=== PATIENT | female | born 1995 | race Two or more races ===

== ENCOUNTER 2016-08-06 15:49 | Outpatient (CLI) | payer MEDICAID ==
[2016-08-06 16:35] VITALS: BMI 27.4
[2016-08-06 16:47] LABS: SPECIFIC GRAVITY 1.015 (1.001-1.030); URINE BILIRUBIN NEGATIVE (NEGATIVE); URINE BLOOD NEGATIVE (NEGATIVE); URINE GLUCOSE (UA) NEGATIVE (NEGATIVE); URINE LEUKOCYTE ESTERASE NEGATIVE (NEGATIVE); URINE NITRITE NEGATIVE (NEGATIVE); URINE PROTEIN NEGATIVE (NEGATIVE); URINE UROBILINOGEN NORMAL (0-1 mg/dl)
[2016-08-06 16:51] LABS: URINE APPEARANCE CLEAR; URINE COLOR YELLOW
[2016-08-06] MEDS ORDERED: IV START KIT ONE (16:58)
[2016-08-06] MEDS ORDERED: LACTATED RINGERS 1,000 ML ONE (16:58)
[2016-08-06] MEDS ORDERED: LACTATED RINGERS 1,000 ML IV SCH (17:00)
== END 2016-08-06 18:14 | disposition home or self-care (01) ==
LOC: FBCOUT 15:49 → FBC 15:49 → FBCOUT 18:14
PROVIDERS: ATTEND Family Medicine
DX: O47.9 False labor, unspecified (principal); Z3A.00 Weeks of gestation of pregnancy not specified
CPT/HCPCS: 96360; 96361; 81003; 59025; J7120; G0463

== ENCOUNTER 2016-09-26 01:48 | Inpatient (IN) | payer MEDICAID ==
[2016-09-26 02:34] VITALS: BMI 29.2
[2016-09-26] MEDS ORDERED: OXYTOCIN IN NS 334 ML IV PRN ×2 (04:40→05:26)
[2016-09-26] MEDS ORDERED: PENICILLIN G POTASSIUM 5 MMU in NS 0.9% (MINI-BAG PLUS) 100 ML IV ONE (04:42)
[2016-09-26] MEDS ORDERED: IV START KIT ONE (04:44)
[2016-09-26] MEDS ORDERED: OXYTOCIN 10 UNITS/ML VIAL ONE (04:44)
[2016-09-26] MEDS ORDERED: MINERAL OIL 25 ML BOT ONE (04:45)
[2016-09-26] MEDS ORDERED: LIDOCAINE 1% (PRES FREE) 30 ML VIAL ONE (04:45)
[2016-09-26] MEDS ORDERED: PUMP TUBING ONE (04:45)
[2016-09-26] MEDS ORDERED: LIDOCAINE Viscous 2% 15 ML UDCUP ONE (04:45)
[2016-09-26] MEDS ORDERED: LACTATED RINGERS 1,000 ML IV SCH ×2 (04:45→06:42)
[2016-09-26] MEDS ORDERED: EPIDURAL PUMP SET ONE (04:45)
[2016-09-26] MEDS ORDERED: FENTANYL/ROPIVACAINE EPIDURAL 250 ML EP ONE (04:46)
[2016-09-26] MEDS ORDERED: PENICILLIN G POTASSIUM 5 MMU VIAL ONE (04:49)
[2016-09-26] MEDS ORDERED: NS 0.9% (MINI-BAG PLUS) 100 ML IV ONE (04:51)
[2016-09-26] MEDS: LACTATED RINGERS 1,000 ML IV PRN ×2 (04:58→05:32)
[2016-09-26] MEDS ORDERED: EPIDURAL PROCEDURE TRAY ONE (05:13)
[2016-09-26] MEDS ORDERED: FENTANYL 100 MCG/2 ML VIAL ONE ×2 (05:27→05:43)
[2016-09-26 05:29] LABS: HEMOGLOBIN 11.6 gm/l (12.0-16.0); MEAN CELL VOLUME 86.2 fl (81.0-99.0); MEAN CORPUSCULAR HEMOGLOBIN 28.6 pg (27.0-31.0); MEAN CORPUSCULAR HGB CONC 33.1 g/dl (33.0-37.0); RED CELL DISTRIBUTION WIDTH 12.9 % (11.5-14.5)
[2016-09-26] MEDS ORDERED: FENTANYL 100 MCG/2 ML VIAL IV ONE (05:44)
[2016-09-26] MEDS ORDERED: SODIUM CHLORIDE 0.9% 500 ML IV PRN ×2 (05:58→06:42)
[2016-09-26] MEDS ORDERED: NALBUPHINE HCL 20 MG/ML AMP IV PRN ×2 (05:58→06:42)
[2016-09-26] MEDS ORDERED: LACTATED RINGERS 500 ML IV PRN ×2 (05:58→06:42)
[2016-09-26] MEDS ORDERED: EPHEDRINE SULFATE 50 MG/ML 1ML VIAL IV PRN ×2 (05:58→06:42)
[2016-09-26] MEDS ORDERED: METOCLOPRAMIDE HCL 5 MG/ML 2ML VIAL IV PRN (05:58)
[2016-09-26] MEDS ORDERED: DIPHENHYDRAMINE HCL 50 MG/1 ML VIAL IV PRN ×2 (05:58→06:42)
[2016-09-26] MEDS ORDERED: ONDANSETRON 4 MG/2ML 2 ML VIAL IV PRN ×2 (05:58→06:42)
[2016-09-26] MEDS ORDERED: NALOXONE HCL 0.4 MG/ML VIAL IV PRN ×2 (05:58→06:42)
--- NOTE | 2016-09-26 07:29 | PDOC36 ---
Provider Note Note: cc: Admission H&P HPI: 21 y.o. year old PATRICIA 10/01/2016, by Ultrasound at 39w2d who presented to L&D with contractions. REVIEW OF SYSTEMS GENERAL:~ No fever or headache EYES:~ No double or blurry vision. CARDIOVASCULAR:~ No chest pain. RESPIRATORY:~ No severe shortness of breath or cough. GASTROINTESTINAL:~ No nausea or vomiting or right upper quadrant pain.~ PSYCHIATRIC:~ No anxiety or depression. PROBLEMS Term Veneral Warts HPV Positive Pap H/O PreEclampsia Desires sterilization OB HISTORY #: 1, Date: 08/04/08, Sex: Male, Weight: 3.345 kg (7 lb 6 oz), GA: 40w0d, Delivery: Vaginal, Spontaneous Delivery, Apgar1: None, Apgar5: None, Living: Yes , Comments: None #: 2, Date: 04/16/10, Sex: Male, Weight: 3.175 kg (7 lb), GA: 40w0d, Delivery: Vaginal, Spontaneous Delivery, Apgar1: None, Apgar5: None, Living: Yes, Comments : None #: 3, Date: 08/29/14, Sex: Male, Weight: 3.175 kg (7 lb), GA: 40w0d, Delivery: Vaginal, Spontaneous Delivery, Apgar1: None, Apgar5: None, Living: Yes, Comments : None #: 4, Date: Current [facility] No past surgical history on file. SOC HX Reports that she has never smoked. She does not have any smokeless tobacco history on file. She reports that she does not drink alcohol or use illicit drugs. ALL No Known Allergies MEDICATIONS ~ [id number] ( VITAMINS PO), Take by mouth., Disp: , Rfl:~ PHYSICAL EXAMINATION VITAL SIGNS:~ AFVSS Estimated body mass index is 29.43 Total weight gain is 10.886 kg (24 lb) FHT:~ 130s Cat I [place]:~ Contractions every 2-3 min SVE:~ 3/80/-1 GENERAL:~ No distress CARDIOVASCULAR:~ Regular rate and rhythm, no murmur, JVD or pedal edema. RESPIRATORY:~ Clear to auscultation bilaterally, respiratory effort is nonlabored at rest. GASTROINTESTINAL:~ Gravid no fundal tenderness NEUROLOGIC:~ Deep tendon reflexes are 2+ in the knees.~ Cranial nerves II-XII are grossly intact. PSYCHIATRIC:~ Alert and oriented x3, judgement and memory is intact, mood is pleasant. LABS & STUDIES O+ Antibody- Rubella Immune Hep B- HIV- GC/Chlamydia- Trep- Hgb 11.7 GBS Positive ULTRASOUNDS 23 wk - Anatomy scan at , grossly normal. Posterior placenta, no previa. Female sex. ASSESSMENT 21 y.o. year old PATRICIA 10/01/2016, by Ultrasound at 39w2d who presents in labor PLAN Admit for expectant management. Messi Langston MD MPH
--- NOTE | 2016-09-26 07:32 | PCMDEL ---
Delivery Note - Delivery Delivery (Date): 09/26/16 Delivery (Time): 06:31 Gender: Female Presentation: Cephalic Position: OA Umbilical Cord: 3 Vessel Delayed Cord Clamping:: < 1-2 min 1 Minute Total: 9 5 Minute Total: 9 Placenta:: 06:38 EBL:: 150 mL Perineum:: Intact Suture:: None Anesthesia/Meds:: Epidural Length ROM:: 15 min Comments:: of a live female in the GWEN position over an intact perineum. The body easily delivered and the baby was placed on the mother's abdomen where she was attended to by nursing staff. There was delayed cord clamping by 1 minute(s). The placenta was delivered spontaneously and was noted to be intact. A 3 vessel cord was also noted.
[2016-09-26] MEDS ORDERED: BENZOCAINE/MENTHOL 60 APPLIC/BOT TP PRN (07:41)
[2016-09-26] MEDS ORDERED: OXYTOCIN IN NS 167 ML IV PRN (07:41)
[2016-09-26] MEDS ORDERED: LANOLIN 50 APPLIC/7G TUBE TP PRN (07:41)
[2016-09-26] MEDS ORDERED: PENICILLIN G 3 MIL UNIT PREMIX 3 MMU in Premix (D5W) 50 ml 1 EACH IV SCH (09:00)
[2016-09-26] MEDS: IBUPROFEN 800 MG TABLET PO PRN ×3 (09:16→23:34)
[2016-09-27] MEDS ORDERED: LACTATED RINGERS 1,000 ML IV SCH
[2016-09-27 06:36] LABS: HEMOGLOBIN 9.9 gm/l (12.0-16.0)
[2016-09-27] MEDS ORDERED: SPINAL PROCEDURAL TRAY 1 EACH ONE (07:02)
[2016-09-27] MEDS ORDERED: MIDAZOLAM HCL 1 MG/ML 2ML VIAL ONE (07:04)
[2016-09-27] MEDS: LACTATED RINGERS 1,000 ML IV SCH ×2 (07:11→07:12)
[2016-09-27] MEDS: FENTANYL/ROPIVACAINE EPIDURAL 250 ML EP SCH ×2 (07:11→07:12)
[2016-09-27] MEDS ORDERED: FENTANYL 100 MCG/2 ML VIAL ONE (08:04)
[2016-09-27] MEDS ORDERED: PROPOFOL 20 ML IV ONE (08:10)
[2016-09-27] MEDS ORDERED: LIDOCAINE 2%/EPI (PRES FREE) 20 ML VIAL ONE (08:10)
[2016-09-27] MEDS ORDERED: KETAMINE HCL UD SYRINGE 100 MG/2 ML IV ONE (08:13)
[2016-09-27] MEDS ORDERED: LANOLIN 50 APPLIC/7G TUBE TP PRN (08:39)
[2016-09-27] MEDS ORDERED: SENNOSIDES 8.6 MG TABLET PO PRN (08:39)
[2016-09-27] MEDS ORDERED: MAGNESIUM HYDROXIDE 30 ML UDCUP PO PRN (08:39)
[2016-09-27] MEDS ORDERED: DOCUSATE SODIUM 100 MG CAPSULE PO PRN (08:39)
[2016-09-27] MEDS ORDERED: IBUPROFEN 800 MG TABLET PO PRN (08:39)
[2016-09-27] MEDS ORDERED: BENZOCAINE/MENTHOL 60 APPLIC/BOT TP PRN (08:39)
[2016-09-27] MEDS: OXYCODONE/ACETAMINOPHEN 5/325 MG TABLET PO PRN ×3 (08:58→22:18)
--- NOTE | 2016-09-27 09:02 | PCMBTL ---
Brief Post Op Note: Date of Procedure: 09/27/16 Start Time: 08:11 am Preoperative Diagnosis: 1. Multiparity desiring permanent sterilization Postoperative Diagnosis: 1. [Same] Procedure: Bilateral Tubal Ligation via Pomery Surgeon: Oneida Pyle MD Anesthesia: spinal Findings: Normal tubes, ovaries and uterus Condition: Stable Complications: None IV Fluids: 1000 mLs of LR Urine Output: n/a Estimated Blood Loss: <5 mLs Specimens: Segments of left and right tubes sent for pathology Procedure: The patient was taken to the operating room where a spinal anesthesia was placed. Initially the anesthesia did not appear adequate so in addition to Fentanyl and Versed IV by administered by anesthesia, approximately 4ml 2% Lidocaine with Epinephrine was injected subcutaneously at the incision site. After these interventions, the anesthesia appeared to be adequate. A small infra -umbilical incision was made with the scalpel. The incision was carried down to through the underlying fascia until the peritoneum was identified and entered. The peritoneum was noted to be free of any adhesions and the incision was then extended with the Metzenbaum scissors. A small Sammy device was securely placed. The patient's left fallopian tube was then identified, brought to the opening of the Sammy and grasped with a Powderly clamp. The tube was then followed to the fimbria. The Powderly clamp was then used to grasp the tube approximately 4cm from cornual region. A 3 cm segment of the tube was returned to the abdomen. The right fallopian tube was then ligated, and a 3 cm segment excised in a similar fashion. Excellent hemostasis was noted, and the tube returned to the abdomen. A final look at both tubal sites confirmed excellent hemostasis. The Sammy device was easily removed. The peritoneum and fascia were then closed in a single layer using 3.0 Vicryl. The skin was closed in a subcuticular fashion using 4.0 Vicryl. The patient tolerated the procedure well. Sponge, lap and needle counts were correct times two. The patient was taken to the recovery room in stable condition.
[2016-09-27] MEDS: IBUPROFEN 800 MG TABLET PO PRN ×2 (09:24→17:05)
--- NOTE | 2016-09-27 18:06 | PDOC44 ---
- Subjective Day: 1 Pt also s/p ppBTL this morning. Was experiencing some continued numbness in her legs but now resolving. Pain is manageable. Reports Flatus, Reports Pain Tolerable, Reports , Reports Lochia Light - Objective Temp Pulse Resp BP Pulse Ox 98.6 F 88 16 120/59 09/27/16 14:17 09/27/16 14:17 09/27/16 14:17 09/27/16 14:17 Lab Results 09/27/16 05:10 Hgb 9.9 L Hct 30.0 L Current Medications Generic Name Dose Route Start Last Admin Trade Name Freq PRN Reason Stop Dose Admin Benzocaine/Menthol 1 applic 09/27/16 08:39 Dermoplast TP PRN PRN Patient Comfort Docusate Sodium 100 mg 09/27/16 08:39 09/27/16 09:24 Colace PO 100 mg DAILY PRN Administration Comfort Ropivacaine/Fentanyl/NS 250 mls @ 0 mls/hr 09/26/16 06:00 09/27/16 07:12 Fentanyl 2 Mcg/Ml + Ropivacaine 0.125% Ep Bag EP Not Given EPI KAMALA Protocol Per Protocol Ibuprofen 800 mg 09/27/16 08:55 09/27/16 17:05 Motrin PO 800 mg Q6H PRN Administration Pain Magnesium Hydroxide 30 ml 09/27/16 08:39 Milk Of Magnesia PO BEDTIME PRN Constipation Oxycodone/Acetaminophen 1 - 2 tab 09/27/16 08:39 09/27/16 09:59 Percocet 5/325 PO 1 tab Q4H PRN Administration Pain (Moderate) Senna 17.2 mg 09/27/16 08:39 Senokot PO BEDTIME PRN Comfort - Physical Exam General: Afebrile, No Acute Distress Psych/Mental Status: Mood/Affect Appropriate, Bonding Well Neurological: Alert, Oriented x 4 Lungs: Clear to Auscultation Bilaterally Cardiovascular: Regular Rate and Rhythm Breast: Nipples Intact Fundus: Firm, Midline Extremities: Full ROM, No Edema, No Tenderness Skin: Normal Color, Warm, Dry, Intact, No Rash Wound ADMISSIONS COORDINATOR: Dressing in Place, Dressing Clean/Dry/Intact, Well Approximated - Problems:Assessment/Plan (1) Vaginal delivery Status: AcuteAssessment/Plan: PPD 1, POD 0 s/p ppBTL Nl exam and vitals. +BF. - support (2) Acute blood loss anemia Status: AcuteAssessment/Plan: Hgb 9.9 after . -will start iron supplementation now Disposition: Anticipate DC Home Tomorrow
[2016-09-28] MEDS: IBUPROFEN 800 MG TABLET PO PRN (04:29)
[2016-09-28 06:51] LABS: HEMATOCRIT 33.1 % (37.0-47.0); HEMOGLOBIN 10.9 gm/l (12.0-16.0)
[2016-09-28] MEDS: OXYCODONE/ACETAMINOPHEN 5/325 MG TABLET PO PRN (07:23)
[2016-09-28 07:29] VITALS: BP 108/60
[2016-09-28] MEDS ORDERED: FERROUS SULFATE (65 Fe) 325 MG TABLET PO SCH (07:30)
--- NOTE | 2016-09-28 09:18 | PDOC39B ---
Hospital Course: ADMIT DATE: 09/26/16 DISCHARGE DATE: 09/28/16 ADMISSION DIAGNOSES: IUP at term in labor GBS positive Undesired fertility PROCEDURES: PP BTL HISTORY OF PRESENT ILLNESS: 21 year old G4 T3 L3 at 39 weeks 2 days presenting with [facility] HOSPITAL COURSE: The patient was admitted in active labor. Given one dose of PCN , but progressed to complete and had uncomplicated prior to 4 hrs of abx dose. Pt desired sterilization. Underwent BTL on PPD#1, no complications. Tolerated well. By day of discharge the patient is ambulating, eating, voiding, and passing flatus without difficulty. Pain is controlled and lochia is appropriate. She is . - Physical Exam Vital Signs: Temp Pulse Resp BP Pulse Ox 97.9 F 88 18 108/60 09/28/16 07:26 09/28/16 07:26 09/28/16 07:26 09/28/16 07:26 General: Afebrile, No Acute Distress Psych/Mental Status: Mood/Affect Appropriate, Judgment/Insight Intact, Bonding Well Neurological: Grossly Intact, Alert, Normal Speech HEENT: Atraumatic, Mucous membr. moist/pink Lungs: Clear to Auscultation Bilaterally Cardiovascular: Regular Rate and Rhythm Breast: Soft Fundus: Firm, Midline, Below Umbilicus Skin: Normal Color, Warm, Dry, Intact, No Rash Wound: Dressing in Place (scant dried blood on gauze of bandaid.) - Discharge Diagnosis (1) Vaginal delivery Status: AcuteAssessment/Plan: PPD 2, POD 1 s/p ppBTL Doing well DC home PP precautions given Pelvic rest x 6-8 wks (2) Acute blood loss anemia Status: AcuteAssessment/Plan: Resolved. Hgb 9.9 after . 10.9 on day of DC Cont PNV (3) Unwanted fertility Status: AcuteAssessment/Plan: s/p PP BTL - Discharge Plan Condition: Good Disposition: Home Instruction Forms: Vaginal Discharge Instructions Prescriptions: Docusate Sodium [COLACE 100 MG CAPSULE (F)] 100 mg PO DAILY PRN #60 PRN Reason: Comfort Benzocaine/Menthol [DERMOPLAST SPRAY (F)] 1 applic TP PRN PRN #1 PRN Reason: Patient Comfort Ibuprofen [IBUPROFEN 800 MG TABLET (F)] 800 mg PO Q6H PRN #80 PRN Reason: Pain Lanolin [LANOLIN 7 G TUBE (SHF)] 1 applic TP PRN PRN #1 PRN Reason: Sore Nipples Oxycodone HCl/Acetaminophen [PERCOCET 5/325 MG TABLET (SHF)] 1 - 2 tab PO Q4H PRN #15 PRN Reason: Pain (Moderate) Follow-Up: Shannan Steven MD [Primary Care Provider] - 09/29/16 (clinic to call to sched)
--- NOTE | 2016-09-29 12:55 | SURGPATH ---
[facility] [address] [place] [id number] Patient Name: AFSANEH IKM MR#: [id number] : 1995 Gender: F Specimen #: [id number] Collected: 09/27/2016 Received: 09/28/2016 Reported: 09/29/2016 Submitting Phys: MUNDO MARTIN Copy To Phys: [facility] N Clinical History / Pre-Operative Diagnosis: NONE PROVIDED Specimen Source / Surgical Procedure Performed: LEFT FALLOPIAN TUBE SEGMENT, RIGHT FALLOPIAN TUBE SEGMENT WITH SUTURE Interpretation: LEFT AND RIGHT FALLOPIAN TUBE SEGMENTS: - FULL CROSS SECTIONS OF BILATERAL FALLOPIAN TUBE SEGMENTS. Electronically Signed Out Debby Cornell M.D. Gross Description: The specimen is received in a formalin filled container labeled with the patient's name and "left and right fallopian tubes". Two cylindrical segments of huang tissue are 1.3 x 0.5 cm and 1.6 x 0.5 cm. The longer segment has an attached suture and is inked black. A liability claims representative cross section of each is submitted in one cassette. Oscar Hernandez Microscopic Description: A section shows full cross sections of bilateral fallopian tube segments, one of which is inked. No significant pathologic changes are identified. 1: [id number] [id number]
== END 2016-09-28 09:44 | disposition home or self-care (01) | DRG 767 ==
LOC: FBCOUT 01:48 → FBC 01:48 → FBCOUT 04:40 → FBC 04:40
PROVIDERS: ADMIT Family Medicine; ATTEND Family Medicine
PROC: 10E0XZZ Delivery of Products of Conception, External Approach (ICD-10-PCS; principal; 2016-09-26)
PROC: 0UL70ZZ Occlusion of Bilateral Fallopian Tubes, Open Approach (ICD-10-PCS; 2016-09-26)
DX: O99.824 Streptococcus B carrier state complicating childbirth (principal); D62 Acute posthemorrhagic anemia; Z30.2 Encounter for sterilization; O99.02 Anemia complicating childbirth; Z3A.39 39 weeks gestation of pregnancy; Z37.0 Single live birth